=== PATIENT | male | born 1955 | race Caucasian/White ===

== ENCOUNTER 2023-06-29 14:43 | Emergency (ER) | payer OTHER ==
[~2023-06-29] VITALS: Ht 180.3 cm; Wt 93.0 kg
[2023-06-29] MEDS ORDERED: FOSAMAX70 MG PO (15:28)
[2023-06-29] MEDS ORDERED: ZOCOR20 MG PO (15:28)
[2023-06-29] MEDS ORDERED: GLUMETZA500 MG (15:28)
== END 2023-06-29 19:22 | disposition home or self-care (01) ==
LOC: ER 14:43
DX: M54.50 Low back pain, unspecified (principal); M51.36 Other intervertebral disc degeneration, lumbar region; I10 Essential (primary) hypertension; E11.9 Type 2 diabetes mellitus without complications; Z79.84 Long term (current) use of oral hypoglycemic drugs
CPT/HCPCS: 72100; 96372; 99284; J2360; J3301